=== PATIENT | female | born 1975 | race Hispanic/Latino ===

== ENCOUNTER 2019-10-20 07:15 | Emergency (ER) | payer SELFPAY ==
[2019-10-20 08:00] LABS: #Basophils 0.1 thou/uL (0.0-0.2); #Eosinphils 0.3 thou/uL (0.0-0.7); #Lymphocytes 3.3 thou/uL (1.20-3.40); #Monocytes 0.5 thou/uL (0.11-0.59); #Neutrophils 3.4 thou/uL (1.40-6.50); %Basophils 1.2 % (0.0-1.0); %Eosinophils 4.3 % (0.0-10.0); %Lymphocytes 43.5 % (21.0-51.0); %Monocytes 6.6 % (0.0-10.0); %Neutrophils 44.3 % (42.0-75.0); Hemoglobin 12.9 g/dL (12.0-16.0); Mean Corpuscular HGB CONC 33.8 g/dL (32.0-36.0); Mean Corpuscular Hemoglobin 28.5 pg (27.0-31.0); Mean Corpuscular Volume 84.3 fL (78.0-98.0); Mean Platelet Volume 8.5 fL (7.4-10.4); Platelet Count 203 thou/uL (130-400); RBC Distribution Width 12.7 % (11.5-14.5); Red Blood Cell (RBC) Count 4.52 mill/uL (4.20-5.40); White Blood Cell (WBC) Count 7.6 thou/uL (4.8-10.8)
[2019-10-20 08:06] LABS: BHCG - Serum Negative (NEGATIVE)
[2019-10-20 08:07] LABS: Pregs Control Background? CLEAR/WHITE (CLR/WHITE); Pregs Control Bar Appear? YES (CONTROL BAR)
[2019-10-20 08:25] LABS: ALT (SGPT) 46 U/L (8-55); AST (SGOT) 36 U/L (5-34); Albumin 4.1 g/dL (3.5-5.0); Alkaline Phosphatase 89 U/L (40-110); Anion Gap 12 mmol/L (10-20); BUN (Urea Nitrogen) 12 mg/dL (7.0-18.7); Bilirubin, Total 0.4 mg/dL (0.2-1.2); Calc. Creatinine Clearance 0 mL/min (70-130); Calcium 8.7 mg/dL (7.8-10.44); Carbon Dioxide 23 mmol/L (22-29); Chloride 106 mmol/L (98-107); Estimated GFR-MDRD Greater than 90; Globulin 2.8 g/dL (2.4-3.5); Glucose 97 mg/dL (70-105); Lipase 12 U/L (8-78); Protein, Total 6.9 g/dL (6.0-8.3); Sodium 137 mmol/L (136-145)
--- NOTE | 2019-10-20 09:05 | CT ---
CT ABDOMEN AND PELVIS WITH IV CONTRAST: Date: 10/20/2019 INDICATION: Abdominal pain. No comparison studies. FINDINGS: Lung bases clear. Liver shows decreased attenuation indicating fatty infiltration. The liver, spleen, and pancreas are otherwise unremarkable. Stomach and duodenum unremarkable. Adrenal glands normal. Kidneys unremarkable. Urinary bladder is distended and unremarkable. Small bowel loops appear normal. Appendix appears normal. Colon unremarkable. The colon is poorly chioma luated due to nondistention. Aorta normal caliber. No adenopathy or mass. Images through the pelvis show a mildly prominent heterogeneous uterus. Endometrium is mildly promine nt. Small cervical cyst consistent with nabothian cyst. A left ovarian cyst measures 2.2 cm. There is another smaller left ovarian cyst measuring approximate ly 1.0 cm. No free fluid in the pelvis. Osseous structures unremarkable. IMPRESSION: No acute process identified. Left ovarian cyst measuring approximately 2.0 cm. POS: [facility]
[2019-10-20] MEDS ORDERED: Lidocaine Viscous Sol 2% 15 ml UD Cup ONE (10:52)
[2019-10-20] MEDS ORDERED: Mag-Al 1200 mg/1200 mg/30 ML UDCUP ONE (10:52)
[2019-10-20] MEDS ORDERED: Dicyclomine 20 MG TAB ONE (10:52)
[2019-10-20] MEDS ORDERED: Pantoprazole 40 MG VIAL ONE (10:52)
[2019-10-20] MEDS ORDERED: Iopamidol 370 76% 100 ML VIAL ONE (14:31)
== END 2019-10-20 11:42 | disposition home or self-care (01) ==
LOC: ERS 07:15
DX: N83.202 Unspecified ovarian cyst, left side (principal); R10.10 Upper abdominal pain, unspecified
CPT/HCPCS: 36415; 74177; 80053; 83690; 84703; 85025; 96374; C9113; Q9967